=== PATIENT | male | born 1965 | race Caucasian/White ===

== ENCOUNTER 2023-04-21 18:27 | Emergency (ER) | payer OTHER ==
[~2023-04-21] VITALS: Ht 177.8 cm; Wt 79.4 kg
[2023-04-21 18:42] VITALS: BP 151/97; PULSE 68; RESP 20; TEMP 98.2; O2SAT 98
[2023-04-21] MEDS ORDERED: ONDANSETRON 4 MG/2 ML VIAL IVP ONE (18:50)
[2023-04-21] MEDS ORDERED: MORPHINE SULFATE 4 MG/ML SYR IVP ONE (18:50)
[2023-04-21] MEDS ORDERED: HYDROmorphone PFS 2 MG/ML SYR IVP ONE ×2 (20:10→23:50)
[2023-04-21 21:05] LABS: BASOPHILS % (AUTO) 0.2 % (0.0-2.0); EOSINOPHILS % (AUTO) 0.1 % (0.0-4.0); HEMATOCRIT 40.7 % (36-52); HEMOGLOBIN 13.8 g/dL (12.0-18.0); LYMPHOCYTES # (AUTO) 0.8 K/uL (2.0-11.5); LYMPHOCYTES % (AUTO) 6.7 % (20.5-51.1); MEAN CORPUSCULAR HEMOGLOBIN 32 pg (27-31); MEAN CORPUSCULAR HGB CONC 34 g/dL (33-37); MEAN CORPUSCULAR VOLUME 95.2 fL (80-94); MONOCYTES # (AUTO) 0.8 K/uL (0.8-1.0); MONOCYTES % (AUTO) 7.3 % (1.7-9.3); NEUTROPHILS # (AUTO) 9.6 K/uL (1.8-7.7); NEUTROPHILS % (AUTO) 85.7 % (42.2-75.2); PLATELET COUNT (AUTO) 151 K/uL (140-450); RED BLOOD CELL COUNT(AUTO) 4.27 MIL/uL (4.20-6.10); RED CELL DISTRIBUTION WIDTH 13.3 % (11.6-13.7); WHITE BLOOD COUNT (AUTO) 11.2 K/uL (4.8-10.8)
[2023-04-21 21:40] LABS: ALBUMIN 4.1 g/dL (3.4-5.0); ANION GAP 17.8 (8-16); CALCIUM 9.2 mg/dL (8.5-10.1); CARBON DIOXIDE 20.3 mmol/L (21-32); CREATININE 0.9 mg/dL (0.6-1.3); POTASSIUM 3.1 mmol/L (3.5-5.1); TOTAL BILIRUBIN 0.7 mg/dL (0.0-1.0); TOTAL PROTEIN, SERUM 7.1 g/dL (6.4-8.2)
[2023-04-21 22:45] VITALS: O2SAT 98
[2023-04-21 22:56] LABS: APPEARANCE,URINE CLEAR (CLEAR); BILIRUBIN,URINE NEGATIVE (NEGATIVE); BLOOD, URINE NEGATIVE (NEGATIVE); COLOR,URINE YELLOW (YELLOW); LEUKOCYTE ESTERASE ,URINE NEGATIVE (NEGATIVE); NITRITE, URINE NEGATIVE (NEGATIVE); PH,URINE >=9.0 (5.0-9.0); PROTEIN,URINE 1+ (NEGATIVE); UGLUCOSE NEGATIVE (NEGATIVE); UROBILINOGEN,URINE 0.2 EU/dL (0.2 - 1)
[2023-04-21 23:09] LABS: INR 1.15 (0.8-1.2); PARTIAL THROMBOPLASTIN TIME 23.6 secs (22-35.6)
[2023-04-21 23:45] VITALS: BP 140/89; PULSE 68; RESP 18; O2SAT 98
== END 2023-04-22 00:06 | disposition short-term general hospital (02) ==
LOC: MED 18:27
DX: S32.492A Other specified fracture of left acetabulum, initial encounter for closed fracture (principal); E78.00 Pure hypercholesterolemia, unspecified; V19.49XA Pedal cycle driver injured in collision with other motor vehicles in traffic accident, initial encounter; Y93.89 Activity, other specified; Y92.89 Other specified places as the place of occurrence of the external cause; Y99.8 Other external cause status
CPT/HCPCS: 36415; 71045; 72050; 74176; 80053; 81003; 82150; 83690; 85025; 85610; 85730; 86886; 86900; 86901; 96374; 96375; 96376; 99285; J1170; J2270; J2405